=== PATIENT | female | born 1950 | race Caucasian/White ===

== ENCOUNTER 2023-07-21 08:32 | Outpatient (CLI) | payer MEDICARE, SELFPAY ==
[2023-07-21 10:27] LABS: Creatinine Urine 297.7 mg/dL
[2023-07-21 10:28] LABS: Alanine Aminotransferase 15 U/L (6-35); Albumin Level 4.3 g/dL (3.5-5.1); Alkaline Phosphatase 59 U/L (38-126); Anion Gap 9 mmol/L (4-12); Aspartate Amino Transferase 22 U/L (14-36); Bilirubin,Total 0.5 mg/dL (0.2-1.3); Blood Urea Nitrogen 34 mg/dL (7-17); Calcium 9.5 mg/dL (8.4-10.2); Carbon Dioxide 27 mmol/L (22-30); Chloride 104 mmol/L (98-107); Cholesterol 150 mg/dL (0-200); Estimated Glomerular Filt Rate 44; Glucose 143 mg/dL (65-110); HDL Direct 46 mg/dL; Potassium 3.4 mmol/L (3.4-5.0); Sodium 140 mmol/L (137-145); Triglycerides 221 mg/dL (<150)
[2023-07-21 10:29] LABS: MALB Creatinine Ratio 27.2 mg/g (0-30)
[2023-07-21 10:40] LABS: LDL Cholesterol Direct 73 mg/dL
[2023-07-21 10:58] LABS: Free T4 Free Thyroxine 1.35 ng/mL (0.78-2.19); Vitamin D 25 Hydroxy 19.2 ng/mL
== END 2023-07-21 08:33 | disposition home or self-care (01) ==
PROVIDERS: PCP Internal Medicine; Visit Provider Internal Medicine
DX: E11.9 Type 2 diabetes mellitus without complications (principal); Z79.899 Other long term (current) drug therapy
CPT/HCPCS: 36415; 80053; 80061; 82043; 82306; 82607; 84439; 84443

== ENCOUNTER 2023-12-02 14:18 | Emergency (ER) | payer OTHER, MEDICARE, SELFPAY ==
--- NOTE | ~2023-12-02 | XR_ITS ---
EXAMINATION: XR knee RT 3V DATE: 12/02/2023 15:05 INDICATION: Right knee trauma post fall TECHNIQUE: Anteroposterior, oblique and crosstable lateral views of the right knee were obtained COMPARISON: None. FINDINGS: There is a transverse intra-articular fracture extending across the midportion of the right patella. There is up to 3-4 mm separation of the fracture margins at the anterior patella. Alignment remains n ear-anatomic. No other fractures identified. Tricompartmental osteoarthritis at the right knee with s evere at the medial and patellofemoral compartments and moderate severity at the lateral compartment. Small joint effusion at the suprapatellar pouch IMPRESSION: 1. Minimally displaced transverse intra-articular fracture across the patella. 2. Moderate to severe medial and patellofemoral compartment predominant tricompartmental osteoarthrit is at the right knee. Reviewed, dictated and finalized at location A. IMPRESSION: 1. Minimally displaced transverse intra-articular fracture across the patella. 2. Moderate to severe medial and patellofemoral compartment predominant tricomp artmental osteoarthritis at the right knee.
--- NOTE | ~2023-12-02 | CT_ITS ---
EXAMINATION: CT knee RT wo con DATE: 12/02/2023 15:46 INDICATION: Patellar fracture TECHNIQUE: High resolution computed tomography (CT) of the right knee was performed without intraveno us contrast. Additional sagittal and coronal reconstructions were performed. Automated exposure contr ol and iterative reconstruction technique were employed. The dose-length product was 568.13 mGy-cm. COMPARISON: None FINDINGS: Again seen is a mildly comminuted intra-articular fracture of the patella with transverse fracture pl ane across the midportion of the patella and a sagittally oriented fracture extending caudally from t he horizontal fracture plane along the medial side of the lateral patellar facet. There is up to 5 mm separation of the anterior margin of the lateral side of the transverse fracture plane. There is up to 1-2 mm in maximal fracture gap and 1 mm step-off along the articular surface at the inferior aspec t of the lateral talar facet. No other fractures identified. There is tricompartmental osteoarthritis at the right knee, severe at the medial compartment with some remodeling of the medial tibial platea u and at least moderate severity at the lateral and patellofemoral compartments with prominent subart icular cystlike change underlying the anterior weightbearing lateral femoral condyle. There is a smal l layering lipohemarthrosis at the suprapatellar pouch. Small portion of hemarthrosis also extends in to a moderate-sized Mejia's cyst. IMPRESSION: 1. Minimally displaced mildly comminuted intra-articular fracture of the patella with small lipohemar throsis. 2. Moderate to severe medial compartment predominant tricompartmental osteoarthritis at the right kne e. 3. Moderate-sized Mejia's cyst. Reviewed, dictated and finalized at location A. IMPRESSION: 1. Minimally displaced mildly comminuted intra-articular fracture of the patell a with small lipohemarthrosis. 2. Moderate to severe medial compartment predominant tricompartmental osteoarth ritis at the right knee. 3. Moderate-sized Mejia's cyst.
--- NOTE | ~2023-12-02 | XR_ITS ---
EXAMINATION: XR shoulder RT min 2V DATE: 12/02/2023 15:05 INDICATION: Right shoulder pain post fall TECHNIQUE: AP internally and externally rotated, AP oblique externally rotated and transscapular Y vi ews of the right shoulder were obtained. COMPARISON: None FINDINGS: Normal alignment. No fracture.Moderate to severe right acromioclavicular osteoarthritis. Mild to mod erate right glenohumeral osteoarthritis. Small subacromial spurs. Small right lung volume with mild o pacities at the right lung base which could represent atelectasis or pneumonia. IMPRESSION: 1. Osteoarthritis at the right shoulder, moderate severity acromioclavicular joint and mild to modera te the glenohumeral joint. No acute osseous abnormality. 2. Small right lung volume with mild right basilar opacities which could represent atelectasis or pne umonia. Reviewed, dictated and finalized at location A. IMPRESSION: 1. Osteoarthritis at the right shoulder, moderate severity acromioclavicular nick int and mild to moderate the glenohumeral joint. No acute osseous abnormality. 2. Small right lung volume with mild right basilar opacities which could repres ent atelectasis or pneumonia.
[2023-12-02 14:20] VITALS: BP 176/80; PULSE 60; RESP 16; TEMP 36.6; O2SAT 97
[2023-12-02 14:30] VITALS: BP 162/87; PULSE 65; RESP 15; O2SAT 98
--- NOTE | 2023-12-02 14:45 | ED.FALL ---
HPI - Fall General Chief Complaint: Fall Stated Complaint: Fell At work, right Knee pain, Right shoulder pain Time Seen by Provider: 12/02/23 14:28 History of Present Illness HPI Narrative: 73-year-old female present to the emergency department for evaluation after having a mechanical fall. Patient states she just finished lunch and checked back in to work and was walking away from the time clock when she tripped and fell to the right knee and struck her right arm on the doorjamb. Patient denies striking head denies loss consciousness. Patient states her arm feels okay which she is having significant pain in the right knee is unable to bear weight. Related Data Home Medications Medication Instructions Recorded Confirmed diclofenac sodium 75 mg 75 mg PO BID 04/14/23 11/08/23 tablet,delayed release escitalopram oxalate 10 mg tablet 10 mg PO DAILY 04/14/23 11/08/23 fenofibrate 160 mg tablet 160 mg PO DAILY 04/14/23 11/08/23 flecainide 50 mg tablet 50 mg PO Q12H 04/14/23 11/08/23 hydralazine 50 mg tablet 50 mg PO TID 04/14/23 11/08/23 indapamide 2.5 mg tablet 2.5 mg PO DAILY 04/14/23 11/08/23 losartan 100 mg tablet 100 mg PO DAILY 04/14/23 11/08/23 rosuvastatin 40 mg tablet 40 mg PO DAILY 04/14/23 11/08/23 Allergies Allergy/AdvReac Type Severity Reaction Status Date / Time amlodipine Allergy Unknown Other Verified 11/02/23 11:43 codeine Allergy Unknown Other Verified 11/02/23 11:43 enalapril Allergy Unknown Other Verified 11/02/23 11:43 lisinopril Allergy Unknown Other Verified 11/02/23 11:43 AMLODIPINE BESYLATE Allergy Other Uncoded 11/02/23 11:43 ENALAPRIL MALEATE Allergy Other Uncoded 11/02/23 11:43 ENALAPRILAT DIHYDRATE Allergy Other Uncoded 11/02/23 11:43 Review of Systems Review of Systems: All systems reviewed & are unremarkable except as noted in HPI and below PMFSH Past Medical History Medical History Hyperlipemia Other shelter (current) drug therapy Type 2 diabetes mellitus Family History Family History Father Family history of congestive heart failure Patient's father is Family history of premature coronary heart disease, Onset Age: 76 Mother Family history of congestive heart failure Patient's mother is Hypertension Family history of elevated blood lipids Family history of diabetes mellitus in first degree relative Diabetes mellitus Asthma Social History Social History (Updated 11/08/23 @ 08:15 by LATRICE Kennedy) Smoking status: Never smoker Second hand tobacco smoke exposure: Yes Alcohol intake: never Substance use: never Substance use type: does not use Do You Feel Safe in your Home?: Yes Lack of Transportation: No Lack of Food: Never True Current Housing: I Have Housing Concerned About Future Housing: No Difficulty Paying Gas/Electric Bills: No Difficulty Paying for Meds: No Currently Unemployed: No Education: Associate Degree Difficulty w/ Childcare or Family Care: No Living arrangements: alone Occupation/Education: occupation Additional occupation/education comments: [employer] Gender identity (if verbalized by the patient): Female Exam Narrative: APPEARANCE: Well appearing, no pain, no distress, well-nourished. HEAD: normocephalic, atraumatic. EYES: PERRLA/EOMI, conjunctivae clear. NOSE: Normal no drainage EARS:TMS clear with good light reflex. THROAT: Pharynx clear, no exudate. NECK: Supple. No adenopathy, no masses. RESPIRATORY: Airway patent, respirations nonlabored. Clear to auscultation bilaterally, no rales, rhonchi, wheezing. CARDIOVASCULAR: Regular rate and rhythm without murmurs rubs or gallops. ABDOMINAL: Soft, nontender, nondistended, normal bowel sounds MUSCULOSKELETAL: Mild tenderness to right humerus with no ecchymosis or deformity. Tenderness and ecchymosis and effusion of right kne
[2023-12-02] MEDS: HYDROcodone/acetaminophen (*CRX) 5-325 MG TABLET 1 TAB PO (16:03)
[2023-12-02 16:04] VITALS: BP 197/97; PULSE 74; RESP 18; TEMP 36.6; O2SAT 97
== END 2023-12-02 16:39 | disposition home or self-care (01) ==
PROVIDERS: Emergency Provider Emergency Medicine; PCP Internal Medicine
DX: S82.031A Displaced transverse fracture of right patella, initial encounter for closed fracture (principal); E78.5 Hyperlipidemia, unspecified; E11.9 Type 2 diabetes mellitus without complications; Z79.85 Long-term (current) use of injectable non-insulin antidiabetic drugs; Z79.899 Other long term (current) drug therapy; Z79.84 Long term (current) use of oral hypoglycemic drugs; M17.11 Unilateral primary osteoarthritis, right knee; M71.21 Synovial cyst of popliteal space [Baker], right knee; M19.011 Primary osteoarthritis, right shoulder; R91.8 Other nonspecific abnormal finding of lung field; W01.198A Fall on same level from slipping, tripping and stumbling with subsequent striking against other object, initial encounter
CPT/HCPCS: 73030; 73562; 73700; 99284; A9270

== ENCOUNTER 2024-12-05 08:05 | Outpatient (CLI) | payer MEDICARE, SELFPAY ==
--- OUTSIDE RECORDS SUMMARY | 2000-10-26 10:00 | XMS_ITS | Continuity of Care Document ---
Author Organization [facility] Address [address] [place] [address] Phone Care Team Providers Care Employee Health Rn Name Role Phone Joel Ralph Unavailable Unavailable Advance Directives Directive Yes / No Effective Date File Name No Information Encounters Encounter Description Practice Location Reason(s) For Visit Diagnoses Date Provider Providers Copied on Encounter [facility], [address], [place], [place], [id number], [place] tel:[phone] [facility] No Information [address] , [address], [place], [address], [place]. tel:[phone] Family History Family Member Type Diagnosis Age At Onset No Information Payers Payer name Insurance type Covered green party ID Authoriza tion(s) No Information Social History Type Description Quantity Date Captured Comments Sex Female Smoking Status No Information Chief Complaint And Reason For Visit No Information Reason For Referral Reason For Referral No Information History Of Present Illness Encounter Date Complaint History Of Prese nt Illness No Information Functional Status Date Functional Assessmen t No Information Instructions Date Instruction Additional Infor mation No Information Assessments Type Assessment Date No Information Patient Care Teams Name Effective Dates (start - stop) Status Members No Information
--- OUTSIDE RECORDS SUMMARY | 2024-12-05 08:01 | XMS_ITS | Clinical Summary ---
Author Organization [facility] Address [address] [place] [address] Care Team Providers Care Outside Plant Supervisor Name Role Phone Unavailable Primary Care Provider Unavailabl e Immunizations Immunization Administration Dates Next Due Covid-19, Mrna, Lnp-s, Pf, 30 Mcg/0.3 Ml Dose (P fizer) 02/05/2021 Social History Tobacco Use Types Packs/Day Years Used Date Smoking Tobacco: Never Assessed Comments Unknown Sex and Gender Information Value Date Recorded Sex Assigned at Not on file Legal Sex Female 10:19 AM CDT Gender Identity Not on file Sexual Orientation Not on file Plan of Treatment Health Maintenance Due Date Last Done Comments Hepatitis C Virus (HCV) Screening 1950 TdaP Immunization 1950 Cologuard 01/05/1997 Colonoscopy 01/05/1997 Colorectal Cancer Screening 01/05/1997 Immunochemical Fecal Occult Blood 01/05/1997 Zoster Immunization (1 of 2) 01/05/2002 Pneumococcal Immunization (5 0+ years) (2 of 2 - PCV20 or PCV21) 10/28/2018 10/28/2017 Influenza Immunization (#1) 2024 02/0 09/2017, 01/21/2016, 01/07/2015 SARS-COV-2 Immunization ( - 2024- season) 2024 02/05/2021, 05/26/2020, 05/05/2020 Respiratory Syncytial Virus (RSV) Immunization (Adult) (1 - 1-dose 75+ series) 01/05/2027 Hepatitis B Immunization Aged Out No longer eligible based on patient's age to complete this topic Human Papillomavirus (HPV) Immunization Aged Out No longer eligible b ased on patient's age to complete this topic Meningococcal Immunization (ACWY) Aged Out No longer eligible b ased on patient's age to complete this topic Rotavirus Immunization Aged Out No lo nger eligible based on patient's age to complete this topic
--- OUTSIDE RECORDS SUMMARY | 2024-12-05 08:01 | XMS_ITS | Clinical Summary ---
Author Organization [facility] Address [address] [place] [id number] Care Team Providers Care Mechanical Expert Name Role Phone Unavailable Primary Care Provider Unavailabl e Social History Tobacco Use Types Packs/Day Years Used Date Smoking Tobacco: Never Assessed Comments Unknown Sex and Gender Information Value Date Recorded Sex Assigned at Not on file Legal Sex Female 2:58 AM CDT Gender Identity Not on file Sexual Orientation Not on file Last Filed Vital Signs Vital Sign Reading Time Taken Comments Blood Pressure 138/80 05/12/2016 9:46 AM THEATRICAL PERFORMER Pulse 76 05/12/2016 9:46 AM THEATRICAL PERFORMER Temperature - - Respiratory Rate - - Oxygen Saturation - - Inhaled Oxygen Concentration - - Weight 100.2 kg (221 lb) 05/12/2016 9:46 AM THEATRICAL PERFORMER Height 162.6 cm (5' 4) 03/13/2015 2:50 PM THEATRICAL PERFORMER Body Mass Index 37.93 03/13/2015 2:50 PM THEATRICAL PERFORMER Plan of Treatment Health Maintenance Due Date Last Done Comments Colorectal Cancer Screening Colonoscopy (10 Years) 1950 Hepatitis C 01/05/1970 DTaP, Tdap and Td Vaccines ( 1 - Tdap) 01/05/1971 Pneumococcal Vaccine: 50+ Ye ars (1 of 1 - PCV) 01/05/2002 Zoster Vaccines (1 of 2) 01/05/2002 Dexa Scan (General) 01/05/2017 Mammogram Screening 01/20/2018 01/21/2016 COVID-19 Vaccine ( - 2023-2 5 season) 2023 RSV Immunization or 60+ Years (1 - 1-dose 75+ series) 01/05/2027 Meningococcal B Vaccine Aged Out No l onger eligible based on patient's age to complete this topic Meningococcal Vaccine Aged Out No braulio florence eligible based on patient's age to complete this topic RSV Immunizations Under 20 Months Aged Out No longer eligible based on patient's age to complete this topic Procedures Procedure Name Priority Date/Time Associated Diagnosis Comments MG SCREENING W BIANCA RYLIE DIGI Routine 01/21/2016 2:25 PM CDT COLONOSCOPY Routine THEATRICAL PERFORMER from Last 3 Months or Most Recently Relevant to Health Maintenance Results * MG SCREENING W BIANCA RYLIE DIGI (01/21/2016 2:25 PM CDT) Anatomical Region Laterality Modality Breast Bilateral Mammography 01/21/2016 2:25 PM CDT 01/21/2016 2:25 PM CDT Narrative 01/21/2016 2:30 PM CDT SHOSHANA SANCHEZ ADMIT/SERVICE DATE: 01/21/16 ACCT: [id number] DISCHARGE DATE: : 1950 SEX: F ORD SITE: [facility] PT TYPE: REG CLI ORDERING MD: JEFFERY [place] MD STUDY DATE REPORT # ORDER # EXT ORDER ID 01/21/16 [id number] PROC CODE: [id number] PROCEDURE DESCRIPTION: SCREEN BREAST TOMOSYNTH BI EXAMINATION: SCREEN BREAST TOMOSYNTH BI WITH TOMOSYNTHESIS AND COMPUTER-AIDED DETECTION (CAD) DATE: 01/21/2016 11:46 AM COMPARISON STUDIES: NO PREVIOUS AVAILABLE. CLINICAL HISTORY: OTHER - ROUTINE MAMM . SCREENING, NO COMPLAINTS. REESTABLISHING BASELINE. HISTORY OF 2 PRIOR LEFT BREAST BIOPSIES. FINDINGS: BILATERAL CC, MLO, 2-D AND 3-D ACQUISITIONS. MILD SCATTERED RESIDUAL FIBROGLANDULAR PARENCHYMA SIMILAR IN APPEARANCE AND DISTRIBUTION TO THE PREVIOUS EXAMS. NO EVIDENCE OF DOMINANT MASS, ARCHITECTURAL DISTORTION, SKIN THICKENING, NIPPLE RETRACTION OR SUSPICIOUS CLUSTERS OF MICROCALCIFICATIONS. BENIGN CALCIFICATIONS REDEMONSTRATED. POST BIOPSY SCAR CENTRAL LEFT BREAST WITH A BIOPSY CLIP IMPRESSION: 1. BI-RADS CATEGORY 2 - BENIGN FINDINGS. ANNUAL SCREENING MAMMOGRAPHY RECOMMENDED A) A NEGATIVE REPORT SHOULD NOT DELAY A BIOPSY IF A DOMINANT OR CLINICALLY SUSPICIOUS MASS IS PRESENT. B) ADENOSIS AND DENSE BREASTS MAY OBSCURE AN UNDERLYING NEOPLASM. C) STUDY INTERPRETED WITH COMPUTER AIDED DETECTION. MQSA BI-RADS CATEGORIES: CATEGORY 0 - NEEDS ADDITIONAL IMAGING EVALUATION. CATEGORY 1 - NEGATIVE. CATEGORY 2 - BENIGN FINDINGS. CATEGORY 3 - PROBABLY BENIGN FINDINGS, BUT SHORT INTERVAL FOLLOW-UP IS RECOMMENDED. CATEGORY 4 - SUSPICIOUS ABNORMALITY AND BIOPSY SHOULD BE CONSIDERED THOUGH THE LESION MAY WELL BE BENIGN. CATEGORY 5 - HIGHLY SUGGESTIVE OF MALIGNANCY AND APPROPRIATE ACTION SHOULD BE TAKEN. ELECTRONICALLY SIGNED BY LUIS GUERRA MD Procedure Note , Generic Conversion, - 01/27/2018 SHOSHANA SANCHEZ ADMIT/SERVICE DATE:01/21/16 ACCT: [id number] DISCHARGE DATE: : 1950 SEX: F ORD SITE: [facility] PT TYPE: REG CLI ORDERING MD:JEFFERY PRESCOTT MD STUDY DATE REPORT # ORDER # EXT ORDER ID 01/21/16 [id number] PROC CODE: [id number] PROCEDURE DESCRIPTION: SCREEN BREAST TOMOSYNTH BI EXAMINATION: SCREEN BREAST TOMOSYNTH BI WITH TOMOSYNTHESIS ANDCOMPUTER-AIDED DETECTION (CAD) DATE: 01/21/2016 11:46 AM COMPARISON STUDIES: NO PREVIOUS AVAILABLE. CLINICAL HISTORY: OTHER - ROUTINE MAMM . SCREENING, NO COMPLAINTS.REESTABLISHING BASELINE. HISTORY OF 2 PRIOR LEFT BREAST BIOPSIES. FINDINGS: BILATERAL CC, MLO, 2-D AND 3-D ACQUISITIONS. MILD SCATTERED RESIDUALFIBROGLANDULAR PARENCHYMA SIMILAR IN APPEARANCE AND DISTRIBUTION TO THE PREVIOUS EXAMS. NO EVIDENCEOF DOMINANT MASS, ARCHITECTURAL DISTORTION, SKIN THICKENING, NIPPLE RETRACTION OR SUSPICIOUSCLUSTERS OF MICROCALCIFICATIONS. BENIGN CALCIFICATIONS REDEMONSTRATED. POST BIOPSYSCAR CENTRAL LEFT BREAST WITH A BIOPSY CLIP IMPRESSION: 1. BI-RADS CATEGORY 2 - BENIGN FINDINGS. ANNUAL SCREENING MAMMOGRAPHY RECOMMENDED A) A NEGATIVE REPORT SHOULD NOT DELAY A BIOPSY IF A DOMINANT OR CLINICALLY SUSPICIOUS MASS IS PRESENT. B) ADENOSIS AND DENSE BREASTS MAY OBSCURE AN UNDERLYING NEOPLASM. C) STUDY INTERPRETED WITH COMPUTER AIDED DETECTION. MQSA BI-RADS CATEGORIES: CATEGORY 0 - NEEDS ADDITIONAL IMAGING EVALUATION. CATEGORY 1 - NEGATIVE. CATEGORY 2 - BENIGN FINDINGS. CATEGORY 3 - PROBABLY BENIGN FINDINGS, BUT SHORT INTERVAL FOLLOW-UP IS RECOMMENDED. CATEGORY 4 - SUSPICIOUS ABNORMALITY AND BIOPSY SHOULD BE CONSIDERED THOUGH THE LESION MAY WELL BE BENIGN. CATEGORY 5 - HIGHLY SUGGESTIVE OF MALIGNANCY AND APPROPRIATE ACTION SHOULD BE TAKEN. ELECTRONICALLY SIGNED BY LUIS GUERRA MD us Jeffery [place] MD MAMMO Final Re sult * Colonoscopy ( THEATRICAL PERFORMER) Narrative [facility] TO EPIC CONVERSION - THEATRICAL PERFORMER Documented hx of procedure Procedure Note , Generic ConversionMD - 02/05/2018 Documented hx of procedure us Generic Conversion Md [facility] PROCEDURE ORDERABLES Final Result [facility] TO EPIC CONVERSION from Last 3 Months or Most Recently Relevant to Health Maintenance
[2024-12-05 09:03] LABS: MALB Creatinine Ratio 47.5 mg/g (0-30)
[2024-12-05 09:05] LABS: Alanine Aminotransferase 15 U/L (6-35); Albumin Level 3.9 g/dL (3.5-5.1); Alkaline Phosphatase 57 U/L (38-126); Anion Gap 6 mmol/L (4-12); Aspartate Amino Transferase 25 U/L (14-36); Bilirubin,Total 0.3 mg/dL (0.2-1.3); Blood Urea Nitrogen 33 mg/dL (7-17); Calcium 9.3 mg/dL (8.4-10.2); Carbon Dioxide 28 mmol/L (22-30); Chloride 102 mmol/L (98-107); Cholesterol 143 mg/dL (0-200); Estimated Glomerular Filt Rate 49; Glucose 134 mg/dL (65-110); HDL Direct 51 mg/dL; Potassium 3.8 mmol/L (3.4-5.0); Sodium 136 mmol/L (137-145); Total Protein 6.8 g/dL (6.3-8.2); Triglycerides 149 mg/dL (<150)
[2024-12-05 09:27] LABS: Free T4 Free Thyroxine 1.17 ng/dL (0.78-2.19)
[2024-12-05 09:40] LABS: Thyroid Stimulating Hormone 2.100 uIU/mL (0.465-4.680)
== END 2024-12-05 08:06 | disposition home or self-care (01) ==
LOC: ANHLAB 08:09
PROVIDERS: PCP Internal Medicine; Visit Provider Internal Medicine
DX: E11.9 Type 2 diabetes mellitus without complications (principal); E78.5 Hyperlipidemia, unspecified; Z71.3 Dietary counseling and surveillance; Z79.899 Other long term (current) drug therapy
CPT/HCPCS: 36415; 80053; 80061; 82043; 82306; 84439; 84443